=== PATIENT | female | born 1960 | race Asian ===

== ENCOUNTER 2023-11-23 08:42 | Day surgery (SDC) | payer OTHER ==
[2023-11-20 11:59] VITALS: BMI 21.4
[2023-11-23 09:01] VITALS: RESP 16
[2023-11-23 10:21] VITALS: TEMP 97.8
[2023-11-23 10:24] VITALS: BP 105/60; PULSE 77
== END 2023-11-23 10:40 | disposition home or self-care (01) ==
LOC: FASU-ENDO 08:42
PROVIDERS: ATTEND Internal Medicine Gastroenterology
PROC: 0DJD8ZZ Inspection of Lower Intestinal Tract, Via Natural or Artificial Opening Endoscopic (ICD-10-PCS; principal; 2023-11-23 09:37)
DX: Z12.11 Encounter for screening for malignant neoplasm of colon (principal); K57.30 Diverticulosis of large intestine without perforation or abscess without bleeding; Z86.010 Personal history of colon polyps; Z80.0 Family history of malignant neoplasm of digestive organs
CPT/HCPCS: 82962